=== PATIENT | female | born 1990 | race African-American/Black ===

== ENCOUNTER 2017-05-30 12:17 | Emergency (ER) | payer SELFPAY ==
[~2017-05-30] VITALS: Ht 165.1 cm; Wt 72.6 kg
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
[2017-05-30] MEDS ORDERED: NEXPLANON68 MG (12:20)
[2017-05-30 13:02] LABS: URINE SOURCE CLEAN CATCH
[2017-05-30 13:04] LABS: URINE APPEARANCE CLEAR; URINE BILIRUBIN NEG (NEG); URINE BLOOD 1+ (NEG); URINE COLOR YELLOW; URINE GLUCOSE NEG (NORM); URINE KETONE NEG (NEG); URINE LEUKOCYTE ESTERASE 1+ (NEG); URINE NITRATE NEG (NEG); URINE PH 6.5 (5-8); URINE PROTEIN NEG (NEG)
[2017-05-30 13:11] LABS: MICRO INDICATED? YES
[2017-05-30 14:18] LABS: URINE RBC 0-2 /[HPF] (0-2)
[2017-05-30 14:19] LABS: URINE BACTERIA 1+ (NEG); URINE GRANULAR CAST 0-2 /[HPF]; URINE HYALINE CAST 0-2 /[HPF]; URINE SQUAMOUS EPITHELIAL CELL FEW /[HPF]
== END 2017-05-30 14:02 | disposition home or self-care (01) ==
LOC: SED 12:17
PROVIDERS: Physician Assistant
DX: S39.012A Strain of muscle, fascia and tendon of lower back, initial encounter (principal); V49.9XXA Car occupant (driver) (passenger) injured in unspecified traffic accident, initial encounter; Y92.410 Unspecified street and highway as the place of occurrence of the external cause
CPT/HCPCS: 72100; 81003; 84703; 99284